=== PATIENT | male | born 1990 | race Caucasian/White ===

== ENCOUNTER 2017-05-01 13:25 | Day surgery (SDC) | payer OTHER ==
[2017-05-01] VITALS (8 sets, daily range): BP systolic 139–165; BP diastolic 71–81; PULSE 54–73; RESP 15–20; O2SAT 95–99
[~2017-05-01] VITALS: Ht 190.5 cm; Wt 79.1 kg
[~2017-05-01 13:25] MED LIST: CeFAZolin Inj 2 GM in IV Premix 1 EACH IV SCH; Lactated Ringer's 1,000 ML IV SCH
[2017-05-01] MEDS ORDERED: fentaNYL-PF 50 mCg/mL 2 mL Inj ONE (13:26)
[2017-05-01] MEDS ORDERED: Ondansetron 2 mg/mL 2 mL Inj ONE (13:26)
[2017-05-01] MEDS ORDERED: Dexamethasone 4 mg/mL Inj ONE (13:26)
[2017-05-01] MEDS ORDERED: Ketamine 10 mg/mL 20 mL Inj ONE (13:26)
[2017-05-01] MEDS ORDERED: Propofol 10,000 mCg/mL 20 mL Inj ONE (13:26)
[2017-05-01] MEDS ORDERED: CeFAZolin 2 Gm/50 mL D5W Duplex Bag IV ONE (13:32)
--- NOTE | 2017-05-01 19:02 | PCM.HPANE ---
Patient Data Surgeon Admitting Provider: Attending Provider:Trenton Peguero DO Primary Care Physician:Lianne Bazzi MD Other Provider:Graciela Condeingham Anesthesia Reason for Visit Left Distal Radius Fracture Ht/WT & BMI Height (Feet): 6 Height (Inches): 3 Weight (Kilograms): 79.1 Body Mass Index 21.00 Allergies Coded Allergies: No Known Allergies (Unverified , 04/28/17) Past Anesthesia History Anesthesia History: Denies:: Abnormal Airway, Anesthesia Reactions (no prior surgery), Difficult Intubation, Fam Anesthesia Reaction Diabetes History Hx Diabetes?: No MRSA MRSA: No Medications Hypertension Medication: No Home Meds Incl Beta Elizabeth: No No Active Prescriptions or Reported Meds History History of ENT Problems?: No HEENT History: Denies:: Abnormal Airway Cataracts Difficult Intubation Dysphagia Glaucoma Hearing Problem Sinus Problem TMJ Denture Type: None Teeth Condition: Within Normal Limits Hx of Heart Problems?: No Cardiovascular History: Denies:: AICD Abdominal Aortic Aneurism Atrial Fibrillation Cardiac Surgery Chest Pain Congestive Heart Failure Coronary Artery Disease Edema Heart Murmur Hypertension Irregular Heartbeat Pacemaker Peripheral Vascular Hx of Respiratory Problem?: No Respiratory History: Denies:: Asthma COPD Emphysema Oxygen Administration Pneumonia Tuberculosis Use of C-PAP Machine Hx Neurologic Problems?: No Neurological History: Denies:: CVA Headaches Multiple Sclerosis Parkinson's Disease Seizures Hx of GI Problems?: No Hx of Problems?: No Genitourinary History: Denies:: Kidney Stones Urinary Tract Infection Male Hx: Denies:: Prostate Problems Skin History: Denies:: History Skin Disorders? Pressure Ulcers Hx Musculoskeletal Problems?: Yes Musculoskeletal History: Positive for:: Musculoskeletal Trauma (left wrist current admission problem) Denies:: Osteoarthritis Hx of Psycho/Social Problems?: No Hx Surgeries?: No Hx Any Other Health Problems?: Yes Other History: Denies:: Cancer Thyroid Disease Hx Diabetes: No Hx Alcohol Use: NoHx Substance Use: No (not since 2010- hx heroin use)Have You Smoked inLast 12 mo: No Stop/Bang Treated for Sleep Apnea?: No Do You Have a CPAP Machine?: No S-Snoring: Do You Snore Loudly: No T-Tired: feel tired, fatigued: No O-Obsered: Observed not breath: No P-Blood Pressure: treated: No B- Body Mass Index > 35 kg/m2: No A- Age over 50: No N- Neck Large Circumference: No G- Gender Male: Yes AMELIA Total Score: 1 AMELIA Risk Assessment: Low Risk, <3 Yes Risk Assessment Category Category 1A: Patient has history of documented sleep apnea, and HAS NOT received any narcotic, sedative or anesthesia administration during this stay. Category 1B: Patient has history of documented sleep apnea, and HAS received any narcotic , sedative or anesthesia administration during this stay Category 2: Patient has SUSPECTED Obstructive Sleep Apnea, and HAS received any narcotic , sedative or anesthesia administration during this stay. Category 3: Patient has SUSPECTED Obstructive Sleep Apnea and HAS NOT received narcotic, sedative or anesthesia administration during this stay. Category 4: Outpatient in Procedural Areas with known sleep apnea or who screen positive for High Risk via the STOP/BANG questionnaire. Exam Exam Vital Signs Vital Signs Date Time Temp Pulse Resp B/P Pulse Ox O2 Delivery O2 Flow Rate FiO2 05/01/17 13:41 36.6 54 16 139/71 99 Room Air General Appearance: Alert, Oriented X3, Cooperative, No Acute Distress HEENT/AIRWAY: MP 2 Lungs: Clear to Auscultation, Normal Air Movement Heart: Exam Unremarkable, Regular Rate/Rhythm, No Murmurs/Rubs/Gallops Plan Impression Patient chart reviewed, patient interviewed and anesthestic plan with risks, benefits, and alternatives discussed, and informed consent obtained. ASA Physical Status: ASA1 Normal Healthy Anesthetic Plan: GA Bene/Risks/Altern/Consents: Yes HP Complete Prior to Induction: Yes Hussain Rosenthal MD May 01, 2017 19:02
[2017-05-01] MEDS ORDERED: HYDROcodone-APAP 7.5-325 mg Tablet PO PRN (19:50)
[2017-05-01] MEDS ORDERED: Lidocaine 1%-Epi 1:100,000 20 mL Inj INFILTRATE ONE (20:06)
[2017-05-01] MEDS ORDERED: Lactated Ringer's 1,000 ML IV ONE (21:22)
[2017-05-01] MEDS ORDERED: Ondansetron 2 mg/mL 2 mL Inj IVPUSH PRN (22:05)
[2017-05-01] MEDS ORDERED: Dexamethasone 4 mg/mL Inj IVPUSH PRN (22:05)
[2017-05-01] MEDS ORDERED: EPHEDrine Sulfate 50 mg/mL Inj IVPUSH PRN (22:05)
[2017-05-01] MEDS ORDERED: Lactated Ringer's 500 ML IV PRN (22:05)
[2017-05-01] MEDS ORDERED: Lactated Ringer's 1,000 ML IV SCH (22:05)
[2017-05-01] MEDS ORDERED: HYDROmorphone 1 mg/mL Inj IVPUSH PRN (22:05)
[2017-05-01] MEDS ORDERED: Phenylephrine 10,000 mCg/mL Inj IVPUSH PRN (22:05)
[2017-05-01] MEDS ORDERED: MetoCLOpramide 5 mg/mL 2 mL Inj IVPUSH PRN (22:05)
[2017-05-01] MEDS: fentaNYL-PF 50 mCg/mL 2 mL Inj IVPUSH PRN ×2 (22:16→22:22)
--- NOTE | 2017-05-01 23:37 | NUR ---
Recover & DC Patient arrived to floor via PACU stretcher. A&O, but sleepy. c/o pain to right wrist, dressing intact. CMS WNL. Able to keep down jello and ice water. No emesis. Voided without issue. Received one Leland 7.5/325 PO. Discharge instructions went over with patient and friend giving patient a ride home. Script given to patient and info on 24 hours pharmacies provided. IV d/c'd intact.
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
== END 2017-05-01 23:30 | disposition home or self-care (01) ==
LOC: SAS 13:25 → OSC 22:17 → SAS 23:30
PROVIDERS: ATTEND Orthopaedic Surgery
DX: S52.572A Other intraarticular fracture of lower end of left radius, initial encounter for closed fracture (principal); V28.0XXA Motorcycle driver injured in noncollision transport accident in nontraffic accident, initial encounter; Y93.89 Activity, other specified; Y92.9 Unspecified place or not applicable; Y99.8 Other external cause status; Z87.891 Personal history of nicotine dependence; Z87.898 Personal history of other specified conditions
CPT/HCPCS: 25608; C1713; C1776; J0690; J1100; J2250; J2405; J2704; J3010; J7120